=== PATIENT | male | born 1965 | race Caucasian/White ===

== ENCOUNTER 2020-04-18 06:15 | Emergency (ER) | payer MEDICAID ==
[~2020-04-18] VITALS: Ht 175.3 cm; Wt 81.6 kg
[~2020-04-18 06:15] MED LIST: [UNRECOGNIZED DRUG - CODE] PO
[2020-04-18 06:18] VITALS: BP 129/77
--- NOTE | 2020-04-18 06:18 | NUR ---
TO BED # 11 AMBULATORY
--- NOTE | 2020-04-18 06:30 | NUR ---
54 Y/O MALE BIB SELF FOR C/O OF BURNING ON URINATION SINCE THIS FRIDAY. HE REPORTS FOUL ODOR ON URINATION. DENIES HAVING ANY PAIN, STATES IT IS JUST "UNCOMFORTABLE". IN NO ACUTE DISTRESS NOTED. BREATHING EVEN AND UNLABORED. BED LOCKED AND IN LOWEST POSITION. PMHX: DENIES NKA
--- NOTE | 2020-04-18 06:30 | NUR ---
UA COLLECTED FROM PATIENT.
--- NOTE | 2020-04-18 06:35 | NUR ---
NEFTALY MULLER AT BEDSIDE AT THIS TIME.
--- NOTE | 2020-04-18 06:43 | NUR ---
URINE SPECIMEN WALKED OVER TO LAB
[2020-04-18] MEDS ORDERED: cephALEXin 500 MG CAP PO ONE (06:45)
[2020-04-18] MEDS ORDERED: ACETAMINOPHEN 325 MG TAB PO ONE (06:45)
--- NOTE | 2020-04-18 06:45 | NUR ---
KAITLYN ENGLE AT BEDSIDE
[2020-04-18 07:05] VITALS: BP 129/77
--- NOTE | 2020-04-18 07:05 | NUR ---
Patient discharged with v/s stable. Written and verbal after care instructions given and explained. Patient alert, oriented and verbalized understanding of instructions. Ambulatory with steady gait. All questions addressed prior to discharge. ID band removed. Patient advised to follow up with PMD. Rx of PHENAZOPYRIDINE & KEFLEX given. Patient educated on indication of medication including possible reaction and side effects. Opportunity to ask questions provided and answered.
== END 2020-04-18 07:05 | disposition home or self-care (01) ==
LOC: MED 06:15
DX: N39.0 Urinary tract infection, site not specified (principal); R30.0 Dysuria; Z79.899 Other long term (current) drug therapy
CPT/HCPCS: 81002; 87086; 99283

== ENCOUNTER 2020-05-07 23:55 | Emergency (ER) | payer MEDICAID ==
[~2020-05-07] VITALS: Ht 170.2 cm; Wt 78.5 kg
[2020-05-08 00:40] VITALS: BP 141/82
--- NOTE | 2020-05-08 00:50 | NUR ---
No nursing interventions needed at this time, Pt assessment completed by KAITLYN Pinzon.
[2020-05-08 01:01] VITALS: BP 141/82
--- NOTE | 2020-05-08 01:01 | NUR ---
Patient discharged with v/s stable. Written and verbal after care instructions given and explained. Patient verbalized understanding. Ambulatory with steady gait. All questions addressed prior to discharge. Advised to follow up with PMD.
== END 2020-05-08 01:01 | disposition home or self-care (01) ==
LOC: MED 23:55
DX: R50.9 Fever, unspecified (principal); Z90.49 Acquired absence of other specified parts of digestive tract; Z79.899 Other long term (current) drug therapy
CPT/HCPCS: 99281